=== PATIENT | male | born 1935 | race Caucasian/White ===

== ENCOUNTER → 2018-09-01 | Outpatient (CLI) | payer MEDICARE ==
[~2018-09-01] MED LIST: CIPR500 PO; METO10SY PO; ONDA4ODT MM; OXYC5 PO; UNK MEDS; Zofran Odt4 MG SL; [UNRECOGNIZED DRUG - REMARK]
[2018-09-01 10:33] LABS: Alanine Aminotransfer (ALT/SGP 21 U/L (12-78); Albumin, Blood 3.2 g/dL (3.4-5.0); Albumin/Globulin Ratio 1.1 (0.8-1.8); Alk Phos 98 U/L (50-136); Anion Gap 7 mmol/L (6-16); Aspartate Aminotrans (AST/SGOT 14 U/L (12-37); Bilirubin, Total 0.4 mg/dL (0.1-1.0); Blood Urea Nitrogen 26 mg/dL (8-24); Bun/Creatinine Ratio 24.8 (12.0-20.0); CO2, Blood 28 mmol/L (21-32); Calcium, Blood 8.4 mg/dL (8.5-10.1); Chloride, Blood 106 mmol/L (98-108); Creatinine, Blood 1.05 mg/dL (0.60-1.20); Glomerular Filtration Rate >60 (60-); Glucose, Blood 120 mg/dL (70-99); Potassium, Blood 5.1 mmol/L (3.5-5.5); Sodium, Blood 141 mmol/L (136-145); Total Protein, Blood 6.2 g/dL (6.4-8.2)
[2018-09-01 18:19] LABS: Appearance, Urine Clear (Clear); Bilirubin, Urine Neg (Neg); Blood, Urine Neg (Neg); Color, Urine Yellow (P-Yellow); Glucose Qualitative, Urine Neg (Neg); Ketones, Urine Neg (Neg); Leukocyte Esterase, Urine Neg (Neg); Nitrite, Urine Neg (Neg); Protein, Urine 1+ (Neg); Urobilinogen, Urine 1+ (Normal)
== END | disposition home or self-care (01) ==
LOC: LAB SHORT 08:45 → LAB 08:45
PROVIDERS: Internal Medicine Hematology & Oncology
DX: C15.5 Malignant neoplasm of lower third of esophagus (principal); Z91.89 Other specified personal risk factors, not elsewhere classified
CPT/HCPCS: 80053; 83735

== ENCOUNTER 2018-10-14 12:20 | Emergency (ER) | payer MEDICARE ==
[~2018-10-14] VITALS: Ht 182.9 cm; Wt 99.8 kg
[~2018-10-14 12:20] MED LIST changes: +OXYC1L
[2018-10-14] MEDS ORDERED: Fentanyl1 EAC4 TD (14:56)
[2018-10-14] MEDS ORDERED: OXYC1L PT (15:53)
== END 2018-10-14 16:23 | disposition home or self-care (01) ==
LOC: ER 12:20
DX: C15.9 Malignant neoplasm of esophagus, unspecified (principal); G89.29 Other chronic pain; Z88.0 Allergy status to penicillin; Z87.891 Personal history of nicotine dependence
CPT/HCPCS: 99283

== ENCOUNTER 2019-07-27 15:14 | Emergency (ER) | payer MEDICARE, OTHER ==
[~2019-07-27] VITALS: Ht 185.4 cm; Wt 104.3 kg
[~2019-07-27 15:14] MED LIST changes: +Fentanyl1 EACH TD; +OXYC1L PT
[2019-07-27 16:05] LABS: BASOPHILS ABSOLUTE AUTO 0.04 K/mm3 (0.00-0.23); BASOPHILS PERCENT AUTO 1 % (0-2); EOSINOPHILS ABSOLUTE AUTO 0.11 K/mm3 (0.00-0.68); EOSINOPHILS PERCENT AUTO 1 % (0-6); Hemoglobin 12.2 g/dL (13.5-17.5); IMMATURE GRAN ABSOLUTE AUTO 0.03 K/mm3 (0.00-0.10); IMMATURE GRAN PERCENT AUTO 0 % (0-1); LYMPHOCYTES ABSOLUTE AUTO 1.33 K/mm3 (0.84-5.20); LYMPHOCYTES PERCENT AUTO 15 % (21-46); MONOCYTES ABSOLUTE AUTO 0.79 K/mm3 (0.16-1.47); MONOCYTES PERCENT AUTO 9 % (4-13); Mean Corpuscular HGB 25.3 pg (26.0-34.0); Mean Corpuscular HGB Conc 30.5 g/dL (31.5-36.5); Mean Corpuscular Volume 83 fL (80-100); Mean Platelet Volume 10.3 fL (9.1-12.4); NEUTROPHILS ABSOLUTE AUTO 6.41 K/mm3 (1.96-9.15); NEUTROPHILS PERCENT AUTO 74 % (41-73); Platelet Count 217 K/mm3 (150-400); RDW Coefficient Variation 15.5 % (11.7-14.2); RDW Standard Deviation 46.6 fL (35.1-46.3); Red Blood Cell Count 4.82 M/mm3 (4.30-5.90); White Blood Cell Count 8.71 K/mm3 (4.00-11.30)
[2019-07-27 16:25] LABS: Alanine Aminotransfer (ALT/SGP 18 U/L (12-78); Albumin, Blood 3.2 g/dL (3.4-5.0); Albumin/Globulin Ratio 0.7 (0.8-1.8); Alk Phos 204 U/L (50-136); Anion Gap 5 mmol/L (6-16); Aspartate Aminotrans (AST/SGOT 24 U/L (12-37); Bilirubin, Total 0.4 mg/dL (0.1-1.0); Blood Urea Nitrogen 28 mg/dL (8-24); Bun/Creatinine Ratio 30.1 (12.0-20.0); CO2, Blood 28 mmol/L (21-32); Calcium, Blood 9.1 mg/dL (8.5-10.1); Chloride, Blood 105 mmol/L (98-108); Creatinine, Blood 0.93 mg/dL (0.60-1.20); Globulin, Blood 4.3 g/dL (2.2-4.0); Glomerular Filtration Rate >60 (60-); Glucose, Blood 106 mg/dL (70-99); Potassium, Blood 4.7 mmol/L (3.5-5.5); Sodium, Blood 138 mmol/L (136-145); Total Protein, Blood 7.5 g/dL (6.4-8.2)
[2019-07-27] MEDS ORDERED: Vibramycin100 MG PO (18:59)
== END 2019-07-27 19:09 | disposition home or self-care (01) ==
LOC: ER 15:14
PROVIDERS: Physician Assistant
DX: J43.9 Emphysema, unspecified (principal); D64.9 Anemia, unspecified; Z88.0 Allergy status to penicillin; Z79.899 Other long term (current) drug therapy; Z85.01 Personal history of malignant neoplasm of esophagus; Z87.891 Personal history of nicotine dependence
CPT/HCPCS: 36415; 71046; 80053; 85025; 96360; 99283-25; A9270-GY; J7030

== ENCOUNTER 2019-08-09 10:04 | Inpatient (IN) | payer MEDICARE, OTHER ==
[~2019-08-09] VITALS: Ht 182.9 cm; Wt 82.5 kg
[~2019-08-09 10:04] MED LIST changes: +Vibramycin100 MG PO
[2019-08-09 10:47] LABS: BASOPHILS ABSOLUTE AUTO 0.03 K/mm3 (0.00-0.23); BASOPHILS PERCENT AUTO 0 % (0-2); EOSINOPHILS ABSOLUTE AUTO 0.02 K/mm3 (0.00-0.68); EOSINOPHILS PERCENT AUTO 0 % (0-6); Hematocrit 39.9 % (37.0-53.0); Hemoglobin 12.2 g/dL (13.5-17.5); IMMATURE GRAN ABSOLUTE AUTO 0.06 K/mm3 (0.00-0.10); IMMATURE GRAN PERCENT AUTO 1 % (0-1); LYMPHOCYTES ABSOLUTE AUTO 1.27 K/mm3 (0.84-5.20); LYMPHOCYTES PERCENT AUTO 10 % (21-46); MONOCYTES ABSOLUTE AUTO 0.91 K/mm3 (0.16-1.47); MONOCYTES PERCENT AUTO 7 % (4-13); Mean Corpuscular HGB 25.3 pg (26.0-34.0); Mean Corpuscular HGB Conc 30.6 g/dL (31.5-36.5); Mean Corpuscular Volume 83 fL (80-100); Mean Platelet Volume 10.4 fL (9.1-12.4); NEUTROPHILS PERCENT AUTO 82 % (41-73); Platelet Count 173 K/mm3 (150-400); RDW Coefficient Variation 15.9 % (11.7-14.2); RDW Standard Deviation 47.3 fL (35.1-46.3); Red Blood Cell Count 4.82 M/mm3 (4.30-5.90); White Blood Cell Count 12.69 K/mm3 (4.00-11.30)
[2019-08-09 11:04] LABS: International Normalized Ratio 1.05; Prothrombin Time Results 11.1 Sec (9.7-11.5)
[2019-08-09 11:20] LABS: Alanine Aminotransfer (ALT/SGP 28 U/L (12-78); Albumin, Blood 3.2 g/dL (3.4-5.0); Albumin/Globulin Ratio 0.7 (0.8-1.8); Alk Phos 229 U/L (50-136); Anion Gap 5 mmol/L (6-16); Aspartate Aminotrans (AST/SGOT 30 U/L (12-37); Bilirubin, Total 0.6 mg/dL (0.1-1.0); Blood Urea Nitrogen 33 mg/dL (8-24); Bun/Creatinine Ratio 32.4 (12.0-20.0); CO2, Blood 29 mmol/L (21-32); Calcium, Blood 9.2 mg/dL (8.5-10.1); Chloride, Blood 108 mmol/L (98-108); Creatinine, Blood 1.02 mg/dL (0.60-1.20); Globulin, Blood 4.3 g/dL (2.2-4.0); Glomerular Filtration Rate >60 (60-); Glucose, Blood 164 mg/dL (70-99); Potassium, Blood 4.4 mmol/L (3.5-5.5); Sodium, Blood 142 mmol/L (136-145); Total Protein, Blood 7.5 g/dL (6.4-8.2)
[2019-08-09] MEDS ORDERED: GABAPENTIN250 MG/5 M PO (13:12)
--- NOTE | 2019-08-09 13:29 | NUR ---
Patient seen in ER. minimally responsive, able to maintain airway. No secretions noted. very very stressed and trying not to cry. She has not slept or ate. Brief discussion and theraputic time. Provided some food and drink. They just moved here to be closer to family as his health was failing. states he has been very distraught over the move and having a new doctor. is feel blame for his decline will have chaplian visit her.
[2019-08-09] MEDS ORDERED: MORP20L SL (16:13)
--- NOTE | 2019-08-09 17:35 | NUR ---
PT ARRIVED TO THE MEDICAL FLOOR FROM THE ER ALERT ORIENTED TO SELF FROM THE ER, PT IS ACCOMPANIED BY HIS , THE PT IS VERY [place] HIS IS TO BRING IN HIS HEARING AIDS INNTHE AM, THE PT WAS ORIENTED TO THE ROOM CALL SYSTEM AND LAYOUT, THE PT WAS ABLE TO STAND AT THE BEDSIDE THIS AFTERNOON WITH THE OCCUPATIONAL THERAPIST, THE PT ANSWERED FOR MOST OF THE PTS QUESTIONS, DUE TO THE PTS HEARING DEFICITS, PT WAS MEDICATED FOR PAIN AND A NEW FENTAYLE PATCH WAS APPLIED, CALL LIGHT IN REACH, WILL CONTINUE TO MONITOR AND ASSESS FOR CHANGES
--- NOTE | 2019-08-09 22:09 | NUR ---
URINE SPECIMEN OBTAINED AND SENT, CX PENDING. PT VOIDED FOR SPECIMEN SO CATH NOT REQUIRED AT THIS TIME.
[2019-08-09 22:13] LABS: Source, Urine Voided
[2019-08-09 22:19] LABS: Bilirubin, Urine Neg (Neg); Blood, Urine Neg (Neg); Glucose Qualitative, Urine Neg (Neg); Ketones, Urine 1+ (Neg); Leukocyte Esterase, Urine Neg (Neg); Nitrite, Urine Neg (Neg); Protein, Urine 2+ (Neg); Specific Gravity, Urine 1.015 (1.003-1.022); Urobilinogen, Urine 1+ (Normal)
[2019-08-09 22:26] LABS: Appearance, Urine Clear (Clear); Color, Urine Yellow (P-Yellow)
[2019-08-09 22:28] LABS: Bacteria Few /hpf; Red Blood Cells, Urine 0-2 /hpf (0-2); Squamous Epithelial Cells Not Seen /hpf (Few); White Blood Cells, Urine 0-2 /hpf (0-5)
--- NOTE | 2019-08-09 22:36 | NUR ---
NO APPARENT UTI BUT WILL MONITOR FOR S/S RETENTION OR INCONTINENCE. IVF INFUSING PER RX.
--- NOTE | 2019-08-10 02:00 | NUR ---
PT G-TUBE DX CHANGED D/T OLD BLOOD AT TUBE INSERTION SITE AND SLIGHT AMT OF BROWN THICK DRAINAGE. SITE CLEANSED W/SKINTEGRITY, NEW FENESTRATED GAUZE DX APPLIED AND AFFIXED W/MEFIX TAPE. TUBE REMAINS CLAMPED AND HAS NOT BEEN USED THIS SHIFT.
--- NOTE | 2019-08-10 05:25 | NUR ---
SUMMARY: PT CONFUSED EXCEPT TO SELF AND FAMILY AND IS VERY [place] MAKING COMMUNICATION CHALLENGING. STAFF COMMUNICATED MOSTLY BY WRITING Q'S/INFO DOWN FOR PT TO READ. HE SEEMS TO ANSWER POINTED Q'S APPROPRIATELY BUT OTHERWISE CALLS INTO HALLS FOR ASSIST AND SPENDS MUCH TIME TALKING TO SELF IN GARBLED MUMBLED SPEECH. PT WAS MEDICATED W/FENT FOR C/O SORE THROAT X1 BUT DENIED NEEDING IT WHEN OFFERED AGAIN. PT IS FIGITY IN BED BUT TURN SCHEDULE WAS MAINTAINED AND SCD'S REMAIN INTACT. FALL PREC'S IN PLACE. HE'S NSR AT 90'S BPM PER TELEMETRY. URINE SPECIMEN OBTAINED, NO UTI EVIDENT. HE WAS URGENT TO USE URINAL AT EOB W/ASSIST X2 BUT WAS INCONTINENT OTHERWISE W/ATTENDS CHANGED PRN. BT'S (+)X4 QUADS WERE HYPOACTIVE AND PT REMAINS NPO W/SPONGES AND ORAL CARE PROVIDED. NS INFUSES AT 75 ML/HR. G-TUBE IS CLAMPED, INSERTION SITE CLEANSED W/SKINTEGRITY D/T SM.AMT OF BROWN DRAINAGE/OLD CRUSTED BLOOD OBSERVED THEN FENESTRATED DX WAS CHANGED. VSS/AFEBRILE, NO ACUTE CHANGES. PT'S TO BRING IN HEARING AIDS TODAY. WCTM AND REPORT TO DAY RN.
[2019-08-10 05:36] LABS: BASOPHILS ABSOLUTE AUTO 0.02 K/mm3 (0.00-0.23); BASOPHILS PERCENT AUTO 0 % (0-2); EOSINOPHILS ABSOLUTE AUTO 0.01 K/mm3 (0.00-0.68); EOSINOPHILS PERCENT AUTO 0 % (0-6); Hematocrit 36.1 % (37.0-53.0); Hemoglobin 11.3 g/dL (13.5-17.5); IMMATURE GRAN ABSOLUTE AUTO 0.04 K/mm3 (0.00-0.10); IMMATURE GRAN PERCENT AUTO 0 % (0-1); LYMPHOCYTES ABSOLUTE AUTO 1.09 K/mm3 (0.84-5.20); LYMPHOCYTES PERCENT AUTO 12 % (21-46); MONOCYTES ABSOLUTE AUTO 0.66 K/mm3 (0.16-1.47); MONOCYTES PERCENT AUTO 7 % (4-13); Mean Corpuscular HGB 25.9 pg (26.0-34.0); Mean Corpuscular HGB Conc 31.3 g/dL (31.5-36.5); Mean Corpuscular Volume 83 fL (80-100); NEUTROPHILS ABSOLUTE AUTO 7.26 K/mm3 (1.96-9.15); NEUTROPHILS PERCENT AUTO 80 % (41-73); RDW Coefficient Variation 15.7 % (11.7-14.2); RDW Standard Deviation 47.2 fL (35.1-46.3); Red Blood Cell Count 4.37 M/mm3 (4.30-5.90); White Blood Cell Count 9.08 K/mm3 (4.00-11.30)
[2019-08-10 06:15] LABS: Mean Platelet Volume 10.9 fL (9.1-12.4); Platelet Count 110 K/mm3 (150-400)
[2019-08-10 06:51] LABS: Alanine Aminotransfer (ALT/SGP 27 U/L (12-78); Albumin/Globulin Ratio 0.8 (0.8-1.8); Alk Phos 213 U/L (50-136); Anion Gap 6 mmol/L (6-16); Aspartate Aminotrans (AST/SGOT 29 U/L (12-37); Bilirubin, Total 0.6 mg/dL (0.1-1.0); Blood Urea Nitrogen 33 mg/dL (8-24); Bun/Creatinine Ratio 36.9 (12.0-20.0); CO2, Blood 27 mmol/L (21-32); Calcium, Blood 8.9 mg/dL (8.5-10.1); Chloride, Blood 112 mmol/L (98-108); Creatinine, Blood 0.89 mg/dL (0.60-1.20); Globulin, Blood 3.9 g/dL (2.2-4.0); Glomerular Filtration Rate >60 (60-); Glucose, Blood 123 mg/dL (70-99); Potassium, Blood 4.4 mmol/L (3.5-5.5); Sodium, Blood 145 mmol/L (136-145); Total Protein, Blood 6.9 g/dL (6.4-8.2)
[2019-08-11 04:42] LABS: BASOPHILS ABSOLUTE AUTO 0.02 K/mm3 (0.00-0.23); BASOPHILS PERCENT AUTO 0 % (0-2); EOSINOPHILS ABSOLUTE AUTO 0.02 K/mm3 (0.00-0.68); EOSINOPHILS PERCENT AUTO 0 % (0-6); Hematocrit 35.8 % (37.0-53.0); IMMATURE GRAN ABSOLUTE AUTO 0.04 K/mm3 (0.00-0.10); IMMATURE GRAN PERCENT AUTO 0 % (0-1); LYMPHOCYTES ABSOLUTE AUTO 1.03 K/mm3 (0.84-5.20); LYMPHOCYTES PERCENT AUTO 9 % (21-46); MONOCYTES PERCENT AUTO 7 % (4-13); Mean Corpuscular HGB 25.4 pg (26.0-34.0); Mean Corpuscular HGB Conc 30.7 g/dL (31.5-36.5); Mean Corpuscular Volume 83 fL (80-100); Mean Platelet Volume 10.3 fL (9.1-12.4); NEUTROPHILS ABSOLUTE AUTO 9.17 K/mm3 (1.96-9.15); NEUTROPHILS PERCENT AUTO 83 % (41-73); Platelet Count 142 K/mm3 (150-400); RDW Coefficient Variation 15.8 % (11.7-14.2); RDW Standard Deviation 46.7 fL (35.1-46.3); Red Blood Cell Count 4.33 M/mm3 (4.30-5.90); White Blood Cell Count 11.08 K/mm3 (4.00-11.30)
[2019-08-11 05:01] LABS: Alanine Aminotransfer (ALT/SGP 26 U/L (12-78); Albumin, Blood 2.9 g/dL (3.4-5.0); Albumin/Globulin Ratio 0.7 (0.8-1.8); Alk Phos 221 U/L (50-136); Anion Gap 6 mmol/L (6-16); Aspartate Aminotrans (AST/SGOT 26 U/L (12-37); Bilirubin, Total 0.7 mg/dL (0.1-1.0); Blood Urea Nitrogen 32 mg/dL (8-24); Bun/Creatinine Ratio 36.5 (12.0-20.0); CO2, Blood 28 mmol/L (21-32); Calcium, Blood 8.6 mg/dL (8.5-10.1); Chloride, Blood 112 mmol/L (98-108); Creatinine, Blood 0.88 mg/dL (0.60-1.20); Glomerular Filtration Rate >60 (60-); Glucose, Blood 116 mg/dL (70-99); Potassium, Blood 3.9 mmol/L (3.5-5.5); Sodium, Blood 146 mmol/L (136-145); Total Protein, Blood 6.9 g/dL (6.4-8.2)
--- NOTE | 2019-08-11 05:42 | NUR ---
Shift Summary: Patient slept intermittently between cares. VSS. Repositioned q2 and changed incontinent briefs.
--- NOTE | 2019-08-11 10:49 | NUR ---
Spoke with Dr Renae prior to Pt visit and discussed case. Dr Renae reports hospice and comfort care would be appropriate to discuss with family. Pt is resting in bed upon arrival. Pt is A&OX1 and is pleasantly confused. Pt reports pain but is unable to verbalize rating. Pt points to his abdomen. Pt's Delisa is at bedside. Engaged in therapeutic discussion regarding goals of care. Discussed hospice and comfort care as options for care. Delisa reports she has already been considering and wishes for Pt to go home on hospice. Educated Delisa on comfort care and hospice philosophy with V/U made by Delisa. Educated on disease process and the importance of gathering family/friends to help with care as disease progresses. Caremanager Shalonda brings hospice agency brochures. Delisa [facility]. Gave Delisa palliative care contact information and instructed to call with any questions or concerns. Spoke with Dr Renae regarding family's wishes for hospice and comfort care. Placed order for comfort care, comfort care order set, and discontinued maintenance medications per V/O from Dr Renae. Palliative Care will remain available.
--- NOTE | 2019-08-11 11:47 | NUR ---
F/U visit: Pt resting in bed and is moaning. Bedside nurse Cesar offered pain medications. POOL FINISHER providing personal care. Discussed completing a POLST with Pt's Sera. Educated on each section to complete and educated on life sustaining measures. Sera completes POLST with Pt's wishes to be DNR and comfort measures only. Will notify Dr Renae of completed POLST. Once signed by hospitalist will obtain copy for medical records. Palliative Care will remain available.
[2019-08-11] MEDS ORDERED: TYLENOL325 MG PO (15:30)
[2019-08-11] MEDS ORDERED: ALBU2.5V5 INH (15:31)
[2019-08-11] MEDS ORDERED: ATROPINE SULFATE2 ML SL (15:31)
[2019-08-11] MEDS ORDERED: LORA1 PT (15:32)
[2019-08-11] MEDS ORDERED: HALO2 PT (15:32)
[2019-08-11] MEDS ORDERED: PROM25 PT (15:33)
[2019-08-11] MEDS ORDERED: Transderm-Scop1 EACH TD (15:33)
== END 2019-08-11 17:15 | disposition hospice, home (50) | DRG 871 ==
LOC: ER 10:04 → ERHOLD 13:16 → MEDS 13:16
PROVIDERS: Nurse Practitioner Acute Care; Physician Assistant; ADMIT Family Medicine
DX: A41.9 Sepsis, unspecified organism (principal); G92 Toxic encephalopathy; G89.4 Chronic pain syndrome; Z85.01 Personal history of malignant neoplasm of esophagus; J43.9 Emphysema, unspecified; Z51.5 Encounter for palliative care; Z87.891 Personal history of nicotine dependence; Z66 Do not resuscitate; F03.90 Unspecified dementia, unspecified severity, without behavioral disturbance, psychotic disturbance, mood disturbance, and anxiety
CPT/HCPCS: 36415; 70450; 71045; 74176; 80053; 81001; 82607; 82746; 82947; 83036; 83605; 84145; 85025; 85610; 87040; 90686; 93005; 93010; 93308; 93321; 93880; 97161; 97165; 97530; 97535; 99285-25; J1650; J1956; J3010; J7030

== ENCOUNTER 2019-08-13 07:14 | Emergency (ER) | payer MEDICARE, OTHER ==
[~2019-08-13] VITALS: Ht 182.9 cm; Wt 81.7 kg
[~2019-08-13 07:14] MED LIST changes: +ALBU2.5V5 INH; +ATROPINE SULFATE2 ML SL; +GABAPENTIN250 MG/5 M PO; +HALO2 PT; +LORA1 PT; +MORP20L SL; +PROM25 PT; +TYLENOL325 MG PO; +Transderm-Scop1 EACH TD
== END 2019-08-13 10:28 | disposition home or self-care (01) ==
LOC: ER 07:14
DX: Z43.1 Encounter for attention to gastrostomy (principal)
CPT/HCPCS: 43762; 49465; 99283-25; Q9963